=== PATIENT | female | born 1940 | race Caucasian/White ===

== ENCOUNTER → 2018-05-16 | Outpatient (CLI) | END | disposition home or self-care (01) ==

== ENCOUNTER → 2018-06-06 | Outpatient (CLI) | END | disposition home or self-care (01) ==

== ENCOUNTER 2018-06-10 17:41 | Inpatient (IN) | END 2018-06-14 16:55 | disposition home or self-care (01) | DRG 470 ==

== ENCOUNTER → 2018-06-20 | Outpatient (CLI) | END | disposition home or self-care (01) ==

== ENCOUNTER → 2018-07-18 | Outpatient (CLI) | END | disposition home or self-care (01) ==

== ENCOUNTER → 2018-12-12 | Outpatient (CLI) | payer BC ==
[~2018-12-12] MED LIST: FLUT1AER INHALATION; LEVO137T30 PO; LOSA25TA12 PO; ROSU20TA PO; UMEC62.5 IH
--- NOTE | 2018-12-12 12:01 | PN ---
Date/Time of Note Date/Time of Note DATE: 12/12/18 TIME: 11:59 Assessment/Plan VTE Prophylaxis Pharmacological prophylaxis: other Assessment/Plan Assessment/Plan The patient is a 78-year-old female with advanced osteoarthritis of her right knee. She is scheduled for right total knee replacement. Risks and benefits of surgical treatment have been discussed with the patient including but not li mited to bleeding, infection, scarring and stiffness, injury to nerves and vessels, DVT and PE, fracture dislocation, implant failure and need for further surgery. The patient understands and wishes to proceed. All questions and concerns were addressed Subjective 24 Hr Interval Summary Free Text/Dictation Lor is here for a preoperative visit related to right total knee replacement scheduled in about 10 days GALLO VEGA Dec 12, 2018 12:01
== END | disposition home or self-care (01) ==
LOC: HKI 11:41
PROVIDERS: ATTEND Orthopaedic Surgery
DX: Z01.818 Encounter for other preprocedural examination (principal); M17.11 Unilateral primary osteoarthritis, right knee
CPT/HCPCS: G0463

== ENCOUNTER 2018-12-22 06:32 | Inpatient (IN) | payer BC ==
[2018-12-14 12:48] VITALS: BMI 80.6
[2018-12-22] VITALS (34 sets, daily range): BP systolic 98–165; BP diastolic 42–71; PULSE 56–94; RESP 10–23; Ht 165.1 cm; Wt 100.6 kg
[~2018-12-22] VITALS: Ht 165.1 cm; Wt 100.6 kg
[2018-12-22] MEDS ORDERED: DEXAMETHASONE 4 MG/ML 1 ML INJ IV ONE (07:00)
[2018-12-22] MEDS ORDERED: TRANEXAMIC ACID 1GM/100ML(PMX) 100 ML IVPB ONE ×2 (07:00→08:00)
[2018-12-22] MEDS ORDERED: CEFAZOLIN 2 GM/50 ML (PMX) 50 ML IVPB ONE (07:00)
[2018-12-22] MEDS ORDERED: CEFAZOLIN 1 GM INJ ONE (07:00)
[2018-12-22] MEDS ORDERED: ACETAMINOPHEN 1000MG/100ML IV 100 ML IVPB SCH ×2 (07:42→07:52)
[2018-12-22] MEDS: LACTATED RINGER'S 1,000 ML IV SCH ×5 (07:45→20:45)
--- NOTE | 2018-12-22 08:16 | HPN ---
Date/Time of Note Date/Time of Note DATE: 12/22/18 TIME: 08:16 Interval H&P Admission Note Pt. seen H&P reviewed: No system changes GALLO VEGA Dec 22, 2018 08:16
[2018-12-22] MEDS ORDERED: POLYMYXIN B 500000 UNIT INJ ONE (08:40)
--- NOTE | 2018-12-22 08:40 | PREAC ---
Date/Time of Note Date/Time of Note DATE: 12/22/18 TIME: 08:38 Anesthesia Eval and Record Evaluation Time Pre-Procedure Interview DATE: 12/22/18 TIME: 08:38 Age 78 Sex female NPO: 8 hrs Preoperative diagnosis right knee primary OA Planned procedure Right knee arthroplasty Past Medical History Past Medical History: Includes Cardio: HTN Endo: Hypothyroid GI: Obesity Surgery & Anesthesia Issues No known issue Meds Anticoagulation: No Beta Pola within 24 hr: No Reason Beta Pola not given: Pt. not on B-Pola Reported Medications Fluticasone-Vilanterol (Breo Ellipta Inhaler) 100-25 Mcg/Actuation Aer.pow.ba, 1 PUFF INHALATION DAILY, #1 INHALER 06/07/18 Losartan Potassium* (Losartan Potassium*) 25 Mg Tablet, 25 MG PO DAILY, TAB 06/07/18 Rosuvastatin Calcium* (Crestor*) 20 Mg Tablet, 20 MG PO QHS, #30 TAB 06/07/18 Levothyroxine Sodium* (Synthroid*) 137 Mcg Tablet, 137 MCG PO BEFORE BREAKFAST, #30 TAB PT HAS OWN MED SHE HAS BEEN INSTRUCTED TO GIVE TO NURSE 06/07/18 Discontinued Reported Medications Umeclidinium Pequea (Incruse Ellipta) 62.5 Mcg Blst.w.dev, 62.5 MCG IH QHS 06/07/18 Current Medications Lactated Ringer's 1,000 ml @ 125 mls/hr Q8H IV Last administered on 12/22/18at 07:45; Admin Dose 125 MLS/HR; Start 12/22/18 at 07:00 Acetaminophen 100 ml @ 200 mls/hr ONCE IVPB Last administered on 12/22/18at 08:00; Admin Dose 200 MLS/HR; Start 12/22/18 at 07:52; Stop 12/22/18 at 10:00 Meds reviewed: Yes Allergies Coded Allergies: No Known Allergy (Unverified , 12/22/18) Allergies Reviewed: Yes Labs/Studies Labs Reviewed: Reviewed by anesthesiologist test: N/A Studies: ECG (sr), CXR (nl) Pre-procedure Exam Last vitals Vital Signs Date Temp Pulse Resp B/P (MAP) Pulse Ox O2 O2 Flow FiO2 Time Delivery Rate 12/22/18 97.8 64 18 149/67 96 Room Air 08:14 (94) Airway: Adequate mouth opening Mallampati: Mallampati I Teeth: Normal Lung: Normal Heart: Normal ASA Physical Status ASA physical status: 2 Emergency: None Planned Anesthetic General/MAC: LMA Neuraxial: Spinal Planned Pain Management Sub-arachniod narcotics, Parenteral pain med Pre-operative Attestations Prior to commencing anesthesia and surgery, the patient was re-evaluated, there was verification of: *The patient's identity *The results of appropriate recent lab work and preoperative vital signs *The above evaluation not changing prior to induction *Anesthetic plan, risk benefits, alternative and complications discussed with patient/family; questions answered; patient/family understands, accepts and wishes to proceed. YANN EDMOND MD Dec 22, 2018 08:39
[2018-12-22] MEDS ORDERED: BACITRACIN 50000 UNITS INJ ONE (08:41)
[2018-12-22] MEDS ORDERED: ONDANSETRON 4 MG INJ ONE ×2 (08:47→10:36)
[2018-12-22] MEDS ORDERED: MIDAZOLAM 1 MG/ML 2 ML INJ ONE (08:47)
[2018-12-22] MEDS ORDERED: FENTAnyl 50 MCG/ML VIAL ONE (08:47)
[2018-12-22] MEDS ORDERED: morphine SULFATE/PF (10 MG/10 ML) INJ ONE (08:47)
[2018-12-22] MEDS ORDERED: DEXAMETHASONE 4 MG/ML 5 ML INJ ONE (08:47)
[2018-12-22] MEDS ORDERED: METOCLOPRAMIDE 10 MG INJ ONE (08:47)
[2018-12-22] MEDS ORDERED: PROPOFOL 20 ML ONE (08:47)
[2018-12-22] MEDS ORDERED: TRANEXAMIC ACID 1GM/100ML(PMX) 100 ML ONE ×2 (10:26→13:28)
[2018-12-22] MEDS ORDERED: KETOROLAC 15 MG INJ IV PRN (10:30)
[2018-12-22] MEDS ORDERED: oxyCODONE 5 MG TAB PO PRN (10:30)
[2018-12-22] MEDS ORDERED: HYDROmorphONE 1 MG/ML SYG IV PRN (10:30)
[2018-12-22] MEDS ORDERED: NALOXONE (0.4 MG/ML) INJ IV PRN (10:30)
[2018-12-22] MEDS ORDERED: NACL 0.9% 3 ML SYG IV SCH (10:30)
[2018-12-22] MEDS ORDERED: MAGNESIUM HYDROXIDE 30ML CUP PO PRN (10:30)
[2018-12-22] MEDS ORDERED: HYDROmorphONE 2 MG/ML SYG ONE (10:30)
[2018-12-22] MEDS ORDERED: ROCURONIUM 50 MG INJ ONE (10:35)
[2018-12-22] MEDS ORDERED: SCOPOLAMINE 1.5 MG PATCH ONE (10:54)
[2018-12-22] MEDS ORDERED: HYDROmorphONE 1 MG/5 ML IV SYRINGE IV PRN ×3 (11:00)
[2018-12-22] MEDS ORDERED: MEPERIDINE 25 MG INJ IV PRN (11:00)
[2018-12-22] MEDS ORDERED: DIPHENHYDRAMINE 50 MG INJ IV PRN (11:00)
[2018-12-22] MEDS ORDERED: ONDANSETRON 4 MG INJ IV PRN (11:00)
[2018-12-22] MEDS ORDERED: LABETALOL HCL 20MG INJ IV PRN (11:00)
[2018-12-22] MEDS ORDERED: OXYCODONE/ACETAMINOPHEN (5/325) TAB PO PRN ×2 (11:00)
[2018-12-22] MEDS ORDERED: hydrALAzine 20 MG INJ IV PRN (11:00)
[2018-12-22] MEDS ORDERED: ROPIVACAINE 0.2% 20 ML VIAL ONE (11:26)
--- NOTE | 2018-12-22 11:56 | SIPON ---
Date/Time of Note Date/Time of Note DATE: 12/22/18 TIME: 11:55 Operative Report Preoperative Diagnosis Right knee osteoarthritis Postoperative Diagnosis Same Operation/Procedure Performed Right total knee replacement Surgeon see signature line shampoo assistant None Anesthesia: spinal Estimated blood loss: 150 - 200 ml's Transfusion Required none Specimen Bone Grafts/Implants Attune knee, size 6 femur, size 5 tibia, 35 patella and 8 mm of polyethylene Complications none GALLO VEGA Dec 22, 2018 11:56
--- NOTE | 2018-12-22 11:59 | OPR ---
Date/Time of Note Date/Time of Note DATE: 12/22/18 TIME: 11:56 Operative Report Procedure Date: Dec 22, 2018 Preoperative Diagnosis Right knee osteoarthritis Postoperative Diagnosis Same Operation/Procedure Performed Right total knee replacement Surgeon see signature line Needle Loom Weaver None Anesthesia Type: spinal Estimated Blood Loss: 150 - 200 ml's Transfusion none Specimen Bone Grafts/Implants Attune knee, size 6 femur, size 5 tibia, 8 mm polyethylene and 35 patella Complications none Pt Condition Post Procedure: stable Disposition: PACU Indications The patient is a 78-year-old female with advanced arthritis of her right knee. She has a flexion deformity and significant valgus with medial laxity Procedure Description The patient was placed supine on the operating room table. The right knee was prepped and draped in usual manner. An anterior incision was made. A mid vastus approach was made in the patella displaced laterally without everting it. The knee had advanced osteoarthritis with large osteophytes, loose bodies and complete loss of cartilage. Using intramedullary alignment, the distal femoral cut was made in 5 degrees of valgus. Anterior posterior and chamfer cuts were made. A notch was cut in the distal femur to accommodate the posterior stabilized femoral component. The PCL was sacrificed and remnants of the menisci were removed. The tibia was cut using external alignment and the patella cut using a freehand technique. Trials were inserted including a size 6 femur, size 5 tibia, 35 patella and 8 mm of polyethylene. This resulted in a stable knee from 0-120 degrees with good balance and tracking. X-rays confirm proper placement of the implants. After this the trials were removed and final components cemented in place. The knee was injected with pain cocktail. Size 6 narrow femur, size 5 tibia, 35 patella and 8 mm of polyethylene were placed mild medial laxity was noted. Final range of motion was 5-120 degrees. The knee was closed in layers using #1 strata fix for deep fascia, 2-0 Vicryl for subcutaneous tissue and 3-0 Monocryl for the skin. Patient was transferred to the recovery room in stable condition GALLO VEGA Dec 22, 2018 11:59
[2018-12-22] MEDS: GABAPENTIN 100 MG CAP PO SCH ×2 (13:00→20:49)
[2018-12-22] MEDS: CEFAZOLIN 2 GM/50 ML (PMX) 50 ML IVPB SCH ×2 (14:21→23:30)
--- NOTE | 2018-12-22 15:04 | PN ---
Date/Time of Note Date/Time of Note DATE: 12/22/18 TIME: 15:01 Assessment/Plan VTE Prophylaxis Risk score (from Ns)>0 risk: 5 SCD applied (from Ns): Yes Pharmacological prophylaxis: NA/contraindicated Pharm contraindication: surgical contra Lines/Catheters IV Catheter Type (from Nrsg): Peripheral IV Subjective 24 Hr Interval Summary Free Text/Dictation 78 yr old woman with hx hbp, lipids and hypothyroidism, now post op rt tkr. awake, alert. some knee pain and nausea. has a scopalamine patch, has zofran, pain meds. may continue home meds bp 141/65, sats ok. lungs clear, abd soft, knee wrapped, moves all four, no paresthesia. plan cont hoime meds, start p.t. Musculoskeletal: bone/joint pain Exam/Review of Systems Exam Vitals Vital Signs Date Temp Pulse Resp B/P (MAP) Pulse Ox O2 O2 Flow FiO2 Time Delivery Rate 12/22/18 97.7 94 18 125/58 85 14:49 (80) 12/22/18 Nasal 14:28 Cannula 12/22/18 3.0 13:03 Medications Medication Current Medications Lactated Ringer's 1,000 ml @ 125 mls/hr Q8H IV Last administered on 12/22/18at 07:45; Admin Dose 125 MLS/HR; Start 12/22/18 at 07:00 Lactated Ringer's 1,000 ml @ 80 mls/hr [id number] IV ; Start 12/22/18 at 10:08 IV Flush (NS 3 ml) 3 ml PER PROTOCOL IV ; Start 12/22/18 at 10:30 Oxycodone HCl (Roxicodone) 10 mg Q4H PRN PO .PAIN; Start 12/22/18 at 10:30 Oxycodone HCl (Roxicodone) 5 mg Q4H PRN PO .PAIN; Start 12/22/18 at 10:30 Hydromorphone HCl (Dilaudid) 1 mg Q3H PRN IV .BREAKTHROUGH PAIN; Start 12/22/18 at 10:30 Ketorolac Tromethamine (Toradol) 15 mg Q6H PRN IV .PAIN; Start 12/22/18 at 10:30 Ondansetron HCl (Zofran Inj) 4 mg Q4H PRN IV NAUSEA/VOMITING; Start 12/23/18 at 10:30 Cefazolin Sodium/ Dextrose 50 ml @ 100 mls/hr Q8H IVPB Last administered on 12/22/18at 14:21; Admin Dose 100 MLS/HR; Start 12/22/18 at 15:00; Stop 12/23/18 at 07:29 Celecoxib (Celebrex) 100 mg BID PO ; Start 12/23/18 at 09:00 Gabapentin (Neurontin) 100 mg TID PO ; Start 12/22/18 at 13:00 Pantoprazole (Protonix Tab) 40 mg DAILY@06 PO ; Start 12/24/18 at 06:00 Docusate Sodium (Colace) 200 mg BID PO ; Start 12/23/18 at 09:00; Stop 12/26/18 at 08:59 Magnesium Hydroxide (Milk Of Mag) 30 ml HS PRN PO .CONSTIPATION; Start 12/22/18 at 10:30 Naloxone HCl (Narcan) 0.2 mg Q2M PRN IV .RESP RATE; Start 12/22/18 at 10:30 Aspirin (Halfprin) 81 mg BID PO ; Start 12/23/18 at 09:00 Hydromorphone HCl (Dilaudid) 0.2 mg PACU PRN IV MILD PAIN 1-3; Start 12/22/18 at 11:00; Stop 12/22/18 at 16:00 Hydromorphone HCl (Dilaudid) 0.4 mg PACU PRN IV MOD PAIN 4-6 Last administered on 12/22/18at 14:00; Admin Dose 0.4 MG; Start 12/22/18 at 11:00; Stop 12/22/18 at 16:00 Hydromorphone HCl (Dilaudid) 0.6 mg PACU PRN IV SEVERE PAIN 7-10; Start 12/22/18 at 11:00; Stop 12/22/18 at 16:00 Oxycodone/ Acetaminophen (Percocet (5/ 325)) 1 tab PACU ORDER PRN PO .PAIN 1-5; Start 12/22/18 at 11:00; Stop 12/22/18 at 16:00 Oxycodone/ Acetaminophen (Percocet (5/ 325)) 2 tab PACU ORDER PRN PO .PAIN 6-10 Last administered on 12/22/18at 13:59; Admin Dose 2 TAB; Start 12/22/18 at 11:00; Stop 12/22/18 at 16:00 Ondansetron HCl (Zofran Inj) 4 mg PACU ORDER PRN IV NAUSEA/VOMITING; Start 12/22/18 at 11:00; Stop 12/22/18 at 16:00 Labetalol HCl (Labetalol) 5 mg PACU ORDER PRN IV HIGH BLOOD PRESSURE; Start 12/22/18 at 11:00; Stop 12/22/18 at 16:00 Hydralazine HCl (Apresoline) 5 mg PACU ORDER PRN IV HIGH BLOOD PRESSURE; Start 12/22/18 at 11:00; Stop 12/22/18 at 16:00 Meperidine HCl (Demerol) 25 mg PACU ORDER PRN IV .RIGORS; Start 12/22/18 at 11:00; Stop 12/22/18 at 16:00 Diphenhydramine HCl (Benadryl) 25 mg PACU ORDER PRN IV .PRURITUS; Start 12/22/18 at 11:00; Stop 12/22/18 at 16:00 MISTI ALFARO MD Dec 22, 2018 15:04
[2018-12-23] MEDS: oxyCODONE 5 MG TAB PO PRN ×5 (01:57→23:01)
[2018-12-23 07:57] VITALS: BP 100/47; PULSE 59; RESP 18
--- NOTE | 2018-12-23 08:52 | PN ---
Date/Time of Note Date/Time of Note DATE: 12/23/18 TIME: 08:50 Assessment/Plan VTE Prophylaxis Risk score (from Ns)>0 risk: 6 SCD applied (from Ns): Yes Pharmacological prophylaxis: NA/contraindicated Pharm contraindication: surgical contra (post tkr) Lines/Catheters IV Catheter Type (from [facility] Saline Lock Assessment/Plan Result Diagram: 12/23/18 0450 12/23/18 0450 Results 24hrs Laboratory Tests Test 12/23/18 04:50 12/23/18 07:04 White Blood Count 9.0 Red Blood Count 4.18 L Hemoglobin 12.4 Hematocrit 40.2 Mean Corpuscular Volume 96.2 Mean Corpuscular Hemoglobin 29.7 Mean Corpuscular Hemoglobin Concent 30.8 L Red Cell Distribution Width 13.4 Platelet Count 285 Mean Platelet Volume 9.1 Immature Granulocytes % 0.200 Neutrophils % 81.5 H Lymphocytes % 10.2 L Monocytes % 8.0 Eosinophils % 0.0 Basophils % 0.1 Nucleated Red Blood Cells % 0.0 Immature Granulocytes # 0.020 Neutrophils # 7.4 Lymphocytes # 0.9 Monocytes # 0.7 Eosinophils # 0.0 Basophils # 0.0 Nucleated Red Blood Cells # 0.0 Sodium Level 142 Potassium Level 4.9 Chloride Level 104 Carbon Dioxide Level 29 Anion Gap 9 Blood Urea Nitrogen 15 Creatinine 0.67 Est Glomerular Filtrat Rate mL/min Glucose Level 121 Calcium Level 8.7 Lab Scanned Report REFERENCE LAB Subjective 24 Hr Interval Summary Free Text/Dictation first post op day. getting up to br w assist, still sig discomfort. no cough or fever, vs ok am labs good alert, lungs clear, no edema. Musculoskeletal: bone/joint pain Exam/Review of Systems Exam Vitals Vital Signs Date Temp Pulse Resp B/P (MAP) Pulse Ox O2 O2 Flow FiO2 Time Delivery Rate 12/23/18 98.0 59 18 100/47 95 Room Air 07:57 (64) 12/22/18 2.0 20:00 Intake and Output 12/22/18 12/22/18 12/23/18 1515:00 23:00 07:00 IntakeIntake Total 1850 ml 1410 ml 910 ml OutputOutput Total 200 ml BalanceBalance 1650 ml 1410 ml 910 ml Results Results 24hrs Laboratory Tests Test 12/23/18 04:50 12/23/18 07:04 White Blood Count 9.0 Red Blood Count 4.18 L Hemoglobin 12.4 Hematocrit 40.2 Mean Corpuscular Volume 96.2 Mean Corpuscular Hemoglobin 29.7 Mean Corpuscular Hemoglobin Concent 30.8 L Red Cell Distribution Width 13.4 Platelet Count 285 Mean Platelet Volume 9.1 Immature Granulocytes % 0.200 Neutrophils % 81.5 H Lymphocytes % 10.2 L Monocytes % 8.0 Eosinophils % 0.0 Basophils % 0.1 Nucleated Red Blood Cells % 0.0 Immature Granulocytes # 0.020 Neutrophils # 7.4 Lymphocytes # 0.9 Monocytes # 0.7 Eosinophils # 0.0 Basophils # 0.0 Nucleated Red Blood Cells # 0.0 Sodium Level 142 Potassium Level 4.9 Chloride Level 104 Carbon Dioxide Level 29 Anion Gap 9 Blood Urea Nitrogen 15 Creatinine 0.67 Est Glomerular Filtrat Rate mL/min Glucose Level 121 Calcium Level 8.7 Lab Scanned Report REFERENCE LAB Medications Medication Current Medications IV Flush (NS 3 ml) 3 ml PER PROTOCOL IV ; Start 12/22/18 at 10:30 Oxycodone HCl (Roxicodone) 10 mg Q4H PRN PO .PAIN Last administered on 12/23/18at 06:25; Admin Dose 10 MG; Start 12/22/18 at 10:30 Oxycodone HCl (Roxicodone) 5 mg Q4H PRN PO .PAIN; Start 12/22/18 at 10:30 Hydromorphone HCl (Dilaudid) 1 mg Q3H PRN IV .BREAKTHROUGH PAIN; Start 12/22/18 at 10:30 Ketorolac Tromethamine (Toradol) 15 mg Q6H PRN IV .PAIN; Start 12/22/18 at 10:30 Ondansetron HCl (Zofran Inj) 4 mg Q4H PRN IV NAUSEA/VOMITING; Start 12/23/18 at 10:30 Celecoxib (Celebrex) 100 mg BID PO ; Start 12/23/18 at 09:00 Gabapentin (Neurontin) 100 mg TID PO Last administered on 12/22/18at 20:49; Admin Dose 100 MG; Start 12/22/18 at 13:00 Pantoprazole (Protonix Tab) 40 mg DAILY@06 PO ; Start 12/24/18 at 06:00 Docusate Sodium (Colace) 200 mg BID PO ; Start 12/23/18 at 09:00; Stop 12/26/18 at 08:59 Magnesium Hydroxide (Milk Of Mag) 30 ml HS PRN PO .CONSTIPATION; Start 12/22/18 at 10:30 Naloxone HCl (Narcan) 0.2 mg Q2M PRN IV .RESP RATE; Start 12/22/18 at 10:30 Aspirin (Halfprin) 81 mg BID PO ; Start 12/23/18 at 09:00 MISTI ALFARO MD Dec 23, 2018 08:52
[2018-12-23] MEDS: CELECOXIB 100 MG CAP PO SCH ×2 (09:00→21:21)
[2018-12-23] MEDS: ASPIRIN (EC) 81 MG TAB PO SCH ×2 (09:00→21:21)
[2018-12-23] MEDS: GABAPENTIN 100 MG CAP PO SCH ×3 (09:00→21:21)
[2018-12-23] MEDS: DOCUSATE SODIUM 100 MG CAP PO SCH ×2 (09:01→21:21)
[2018-12-23] MEDS: CEFAZOLIN 2 GM/50 ML (PMX) 50 ML IVPB SCH (09:01)
[2018-12-23] MEDS ORDERED: ONDANSETRON 4 MG INJ IV PRN (10:30)
--- NOTE | 2018-12-23 12:20 | PAC ---
Date/Time of Note Date/Time of Note DATE: 12/23/18 TIME: 12:20 Post-Anesthesia Notes Post-Anesthesia Note Last documented vital signs Vital Signs Date Temp Pulse Resp B/P (MAP) Pulse Ox O2 O2 Flow FiO2 Time Delivery Rate 12/23/18 98.0 59 18 100/47 95 Room Air 07:57 (64) 12/22/18 2.0 20:00 Activity: WNL Respiratory function: WNL Cardiovascular function: WNL Mental status: Baseline Pain reasonably controlled: Yes Hydration appropriate: Yes Nausea/Vomiting absent: No YANN EDMOND MD Dec 23, 2018 12:20
--- NOTE | 2018-12-23 12:22 | OPPN ---
Date/Time of Note Date/Time of Note DATE: 12/23/18 TIME: 12:20 Anesthesia Follow up Anesthesia Follow up Last documented vital signs Vital Signs Date Temp Pulse Resp B/P (MAP) Pulse Ox O2 O2 Flow FiO2 Time Delivery Rate 12/23/18 98.0 59 18 100/47 95 Room Air 07:57 (64) 12/22/18 2.0 20:00 Respiratory function: WNL Cardiovascular function: WNL Comments a 78N YEAR FRMALE S/P GA, SPINAL DURAMORPH, POD #1 IS DOING WELL. PAIN IS CONTROLLED, NO N?V, ITCHING, HEADACHE, NEURAL DEFICIT. YANN EDMOND MD Dec 23, 2018 12:22
[2018-12-23] MEDS: LOSARTAN 25 MG TAB PO SCH (16:45)
[2018-12-23] MEDS: SYNTHROID 137MCG TABLET PO SCH (16:45)
[2018-12-23] MEDS: FLUTICASONE/VILANTEROL 100-25 INH SCH (16:45)
[2018-12-23 16:47] VITALS: BP 114/55; PULSE 69; RESP 16
[2018-12-23 20:30] VITALS: BP 110/55; PULSE 73; RESP 18
[2018-12-23] MEDS ORDERED: NON-FORMULARY/PATIENT OWN MED (Rosuvastatin Calcium* (Crestor*) 20 MG) PO SCH (21:00)
[2018-12-23] MEDS: ATORVASTATIN 80 MG TAB PO SCH (21:21)
[2018-12-24 02:30] VITALS: BP 120/55; PULSE 79; RESP 19
[2018-12-24] MEDS: oxyCODONE 5 MG TAB PO PRN (04:16)
[2018-12-24] MEDS: SYNTHROID 137MCG TABLET PO SCH (06:09)
[2018-12-24] MEDS: PANTOPRAZOLE (EC) 40 MG TAB PO SCH (06:09)
[2018-12-24] MEDS ORDERED: LEVOTHYROXINE 137 MCG TAB PO SCH (07:00)
[2018-12-24 08:00] VITALS: BP 130/60; PULSE 89; RESP 18
[2018-12-24] MEDS: ASPIRIN (EC) 81 MG TAB PO SCH ×2 (10:04→21:29)
[2018-12-24] MEDS: DOCUSATE SODIUM 100 MG CAP PO SCH ×2 (10:04→21:29)
[2018-12-24] MEDS: GABAPENTIN 100 MG CAP PO SCH ×3 (10:04→21:29)
[2018-12-24] MEDS: CELECOXIB 100 MG CAP PO SCH ×2 (10:04→21:29)
[2018-12-24] MEDS: LOSARTAN 25 MG TAB PO SCH (10:06)
[2018-12-24] MEDS: FLUTICASONE/VILANTEROL 100-25 INH SCH (10:10)
--- NOTE | 2018-12-24 13:19 | PDOCDIS ---
Discharge Instructions CONDITION [id number] Patient Condition: [id number] Good HOME CARE INSTRUCTIONS: [id number] Diet Instructions: [id number] Regular ACTIVITY: [id number] Activity Restrictions: [id number] Rest between Activity Do not Drive Keep Limb Elevated [id number] Bathing Restrictions: Lafvs9e Shower GALLO VEGA Dec 24, 2018 13:19
--- NOTE | 2018-12-24 13:19 | PN ---
Date/Time of Note Date/Time of Note DATE: 12/24/18 TIME: 13:17 Assessment/Plan Lines/Catheters IV Catheter Type (from Nrsg): Saline Lock Assessment/Plan Assessment/Plan Patient is progressing well after knee replacement. However, she has significant nausea today. She has been unable to participate in physical therapy today. It is better for her to spend another 24-48 hours in the hospital until the nausea has resolved. Her pain should be well controlled on oral pain medication. She also needs a couple more sessions of physical therapy before she can leave. Once she is cleared by physical therapy, patient may be discharged home with home health care Subjective 24 Hr Interval Summary Patient is progressing well after total knee replacement. She does report significant nausea today due to excessive pain medication. She was not able to do her physical therapy this morning. No fever or chills Exam/Review of Systems Vital Signs Vitals Vital Signs Date Temp Pulse Resp B/P (MAP) Pulse Ox O2 O2 Flow FiO2 Time Delivery Rate 12/24/18 97.8 89 18 130/60 92 08:00 (83) 12/23/18 Nasal 2.0 16:47 Cannula Intake and Output 12/23/18 12/23/18 12/24/18 1414:59 22:59 06:59 IntakeIntake Total 50 ml 1040 ml OutputOutput Total 350 ml BalanceBalance 50 ml 690 ml Exam Free Text/Dictation Right knee dressing is intact. Range of motion is 10-90 degrees. There is no neurovascular deficit. Results Result Diagram: 12/24/18 0446 12/24/18 0446 GALLO VEGA Dec 24, 2018 13:19
[2018-12-24 14:00] VITALS: BP_SYST 132; BP_DIAS 35; BP_DIAS 65; PULSE 80; RESP 18
--- NOTE | 2018-12-24 16:50 | PN ---
Date/Time of Note Date/Time of Note DATE: 12/24/18 PATIENT SEEN @ 12:45 TIME OF NOTE: 16:37 Assessment/Plan VTE Prophylaxis Risk score (from [facility])>0 risk: 12 SCD applied (from [facility]): Yes Pharmacological prophylaxis: NA/contraindicated Pharm contraindication: surgical contra (TKR) Lines/Catheters IV [facility] Saline Lock Assessment/Plan Problems: (1) Osteoarthritis Status: Chronic Comment: Patient is status post right total knee replacement POD #2. Had the left knee replaced last year Qualifiers: Laterality: bilateral (2) Status post total right knee replacement Status: Acute Comment: POD # 2. Unable to wok th physical therapy today due to severe nausea. Still with lower extremity discomfort. (3) Hypertension, essential Status: Chronic Comment: Decent control (4) Acquired hypothyroidism Status: Chronic Comment: On replacement therapy. Dose has been adjusted to correct for the suppressed TSH suggestive of being overmedicated. (5) Mild persistent asthma Status: Chronic Qualifiers: Asthma complication type: uncomplicated Qualified Codes: J45.30 - Mild persistent asthma, uncomplicated Result Diagram: 12/24/18 0446 12/24/18 0446 Results 24hrs Laboratory Tests Test 12/24/18 04:46 White Blood Count 6.2 # Red Blood Count 3.78 L Hemoglobin 11.1 L Hematocrit 36.1 L Mean Corpuscular Volume 95.5 Mean Corpuscular Hemoglobin 29.4 Mean Corpuscular Hemoglobin Concent 30.7 L Red Cell Distribution Width 13.7 Platelet Count 233 Mean Platelet Volume 9.4 Immature Granulocytes % 0.300 Neutrophils % 73.4 Lymphocytes % 16.5 Monocytes % 8.9 Eosinophils % 0.6 Basophils % 0.3 Nucleated Red Blood Cells % 0.0 Immature Granulocytes # 0.020 Neutrophils # 4.6 Lymphocytes # 1.0 Monocytes # 0.6 Eosinophils # 0.0 Basophils # 0.0 Nucleated Red Blood Cells # 0.0 Sodium Level 136 Potassium Level 4.0 Chloride Level 99 Carbon Dioxide Level 32 H Anion Gap 5 Blood Urea Nitrogen 17 Creatinine 0.64 Est Glomerular Filtrat Rate mL/min Glucose Level 128 Calcium Level 8.3 L Subjective 24 Hr Interval Summary Free Text/Dictation Patient complains of extreme nausea. Unable to get up or move without vomiting. Exam/Review of Systems Exam Vitals Vital Signs Date Temp Pulse Resp B/P (MAP) Pulse Ox O2 O2 Flow FiO2 Time Delivery Rate 12/24/18 97.9 80 18 132/35 99 14:00 (67) 12/23/18 Nasal 2.0 16:47 Cannula Intake and Output 12/23/18 12/23/18 12/24/18 1515:00 23:00 07:00 IntakeIntake Total 50 ml 1040 ml OutputOutput Total 350 ml BalanceBalance 50 ml 690 ml Constitutional: alert, oriented, obese Head: normocephalic Neck: supple Respiratory: clear to auscultation Cardiovascular: regular rate and rhythm Gastrointestinal: soft Extremities: normal pulses Results Results 24hrs Laboratory Tests Test 12/24/18 04:46 White Blood Count 6.2 # Red Blood Count 3.78 L Hemoglobin 11.1 L Hematocrit 36.1 L Mean Corpuscular Volume 95.5 Mean Corpuscular Hemoglobin 29.4 Mean Corpuscular Hemoglobin Concent 30.7 L Red Cell Distribution Width 13.7 Platelet Count 233 Mean Platelet Volume 9.4 Immature Granulocytes % 0.300 Neutrophils % 73.4 Lymphocytes % 16.5 Monocytes % 8.9 Eosinophils % 0.6 Basophils % 0.3 Nucleated Red Blood Cells % 0.0 Immature Granulocytes # 0.020 Neutrophils # 4.6 Lymphocytes # 1.0 Monocytes # 0.6 Eosinophils # 0.0 Basophils # 0.0 Nucleated Red Blood Cells # 0.0 Sodium Level 136 Potassium Level 4.0 Chloride Level 99 Carbon Dioxide Level 32 H Anion Gap 5 Blood Urea Nitrogen 17 Creatinine 0.64 Est Glomerular Filtrat Rate mL/min Glucose Level 128 Calcium Level 8.3 L Medications Medication Current Medications IV Flush (NS 3 ml) 3 ml PER PROTOCOL IV ; Start 12/22/18 at 10:30 Oxycodone HCl (Roxicodone) 10 mg Q4H PRN PO .PAIN Last administered on 12/24/18at 04:16; Admin Dose 10 MG; Start 12/22/18 at 10:30 Oxycodone HCl (Roxicodone) 5 mg Q4H PRN PO .PAIN Last administered on 12/24/18at 10:03; Admin Dose 5 MG; Start 12/22/18 at 10:30 Hydromorphone HCl (Dilaudid) 1 mg Q3H PRN IV .BREAKTHROUGH PAIN Last administered on 12/24/18 15:44; Admin Dose 1 MG; Start 12/22/18 at 10:30 Ketorolac Tromethamine (Toradol) 15 mg Q6H PRN IV .PAIN; Start 12/22/18 at 10:30 Ondansetron HCl (Zofran Inj) 4 mg Q4H PRN IV NAUSEA/VOMITING Last administered on 12/24/18 13:56; Admin Dose 4 MG; Start 12/23/18 at 10:30 Celecoxib (Celebrex) 100 mg BID PO Last administered on 12/24/18 10:04; Admin Dose 100 MG; Start 12/23/18 at 09:00 Gabapentin (Neurontin) 100 mg TID PO Last administered on 12/24/18 14:30; Admin Dose 100 MG; Start 12/22/18 at 13:00 Pantoprazole (Protonix Tab) 40 mg DAILY@06 PO Last administered on 12/24/18 06:09; Admin Dose 40 MG; Start 12/24/18 at 06:00 Docusate Sodium (Colace) 200 mg BID PO Last administered on 12/24/18 10:04; Admin Dose 200 MG; Start 12/23/18 at 09:00; Stop 12/26/18 at 08:59 Magnesium Hydroxide (Milk Of Mag) 30 ml HS PRN PO .CONSTIPATION; Start 12/22/18 at 10:30 Naloxone HCl (Narcan) 0.2 mg Q2M PRN IV .RESP RATE; Start 12/22/18 at 10:30 Aspirin (Halfprin) 81 mg BID PO Last administered on 12/24/18 10:04; Admin Dose 81 MG; Start 12/23/18 at 09:00 Fluticasone/ Vilanterol (Breo Ellipta 100-25 Mcg Inh) 1 inh DAILY INH Last administered on 12/24/18 10:10; Admin Dose 1 INH; Start 12/23/18 at 14:30 Losartan Potassium (Cozaar) 25 mg DAILY PO Last administered on 12/24/18 10:06; Admin Dose 25 MG; Start 12/23/18 at 13:30 Atorvastatin Calcium (Lipitor) 80 mg DAILY@21 PO Last administered on 12/23/18 21:21; Admin Dose 80 MG; Start 12/23/18 at 21:00 Patient Own Medication 1 ea DAILY@0600 PO Last administered on 12/24/18at 06:09; Admin Dose 1 EA; Start 12/23/18 at 15:00 MAGGIE ADLER MD Dec 24, 2018 16:47
[2018-12-24 20:44] VITALS: BP 138/62; PULSE 81; RESP 20
[2018-12-24] MEDS: ATORVASTATIN 80 MG TAB PO SCH (21:28)
[2018-12-25 02:25] VITALS: BP 95/45; PULSE 77; RESP 20
[2018-12-25] MEDS: SYNTHROID 137MCG TABLET PO SCH (05:44)
[2018-12-25] MEDS: PANTOPRAZOLE (EC) 40 MG TAB PO SCH (05:44)
[2018-12-25 08:04] VITALS: BP 115/57; PULSE 76; RESP 18
[2018-12-25] MEDS: DOCUSATE SODIUM 100 MG CAP PO SCH (09:00)
[2018-12-25] MEDS: LOSARTAN 25 MG TAB PO SCH (09:00)
[2018-12-25] MEDS: FLUTICASONE/VILANTEROL 100-25 INH SCH (09:26)
[2018-12-25] MEDS: CELECOXIB 100 MG CAP PO SCH (09:26)
[2018-12-25] MEDS: GABAPENTIN 100 MG CAP PO SCH ×2 (09:26→13:22)
[2018-12-25] MEDS: ASPIRIN (EC) 81 MG TAB PO SCH (09:26)
--- NOTE | 2018-12-25 11:41 | PN ---
Date/Time of Note Date/Time of Note DATE: 12/25/18 TIME: 11:39 Assessment/Plan VTE [place] [facility] [place]: 13 [place] [facility] [place] Pharmacological prophylaxis: NA/contraindicated Pharm contraindication: low risk/ambulating Lines/Catheters IV Catheter Type (from [facility] Saline Lock Assessment/Plan Problems: (1) Status post total right knee replacement Status: Acute Comment: Clinically stable (2) Acquired hypothyroidism Status: Chronic Comment: No issues at this time (3) Hypertension, essential Status: Chronic Comment: Good BP control Assessment/Plan Clinically stable to go home. Result Diagram: 12/25/1842712/25/18427 Results 24hrs Laboratory Tests Test 12/25/18 04:28 White Blood Count 7.2 Red Blood Count 3.45 L Hemoglobin 10.3 L Hematocrit 33.3 L Mean Corpuscular Volume 96.5 Mean Corpuscular Hemoglobin 29.9 Mean Corpuscular Hemoglobin Concent 30.9 L Red Cell Distribution Width 13.6 Platelet Count 223 Mean Platelet Volume 9.5 Immature Granulocytes % 0.700 H Neutrophils % 70.9 Lymphocytes % 14.5 L Monocytes % 12.6 H Eosinophils % 0.6 Basophils % 0.7 Nucleated Red Blood Cells % 0.0 Immature Granulocytes # 0.050 H Neutrophils # 5.1 Lymphocytes # 1.0 Monocytes # 0.9 Eosinophils # 0.0 Basophils # 0.1 Nucleated Red Blood Cells # 0.0 Sodium Level 138 Potassium Level 4.8 Chloride Level 98 Carbon Dioxide Level 34 H Anion Gap 6 Blood Urea Nitrogen 21 H Creatinine 0.82 Est Glomerular Filtrat Rate mL/min Glucose Level 122 Calcium Level 8.2 L Subjective 24 Hr Interval Summary Free Text/Dictation No new events overnight. Nausea improved Exam/Review of Systems Exam Vitals Vital Signs Date Temp Pulse Resp B/P (MAP) Pulse Ox O2 O2 Flow FiO2 Time Delivery Rate 12/25/18 97.5 76 18 115/57 88 08:04 (76) 12/23/18 Nasal 2.0 16:47 Cannula Intake and Output 12/24/18 12/24/18 12/25/18 1515:00 23:00 07:00 IntakeIntake Total 400 ml 400 ml 300 ml BalanceBalance 400 ml 400 ml 300 ml Constitutional: alert, oriented Neck: supple Respiratory: clear to auscultation Cardiovascular: regular rate and rhythm Gastrointestinal: soft Extremities: normal pulses Results Results 24hrs Laboratory Tests Test 12/25/18 04:28 White Blood Count 7.2 Red Blood Count 3.45 L Hemoglobin 10.3 L Hematocrit 33.3 L Mean Corpuscular Volume 96.5 Mean Corpuscular Hemoglobin 29.9 Mean Corpuscular Hemoglobin Concent 30.9 L Red Cell Distribution Width 13.6 Platelet Count 223 Mean Platelet Volume 9.5 Immature Granulocytes % 0.700 H Neutrophils % 70.9 Lymphocytes % 14.5 L Monocytes % 12.6 H Eosinophils % 0.6 Basophils % 0.7 Nucleated Red Blood Cells % 0.0 Immature Granulocytes # 0.050 H Neutrophils # 5.1 Lymphocytes # 1.0 Monocytes # 0.9 Eosinophils # 0.0 Basophils # 0.1 Nucleated Red Blood Cells # 0.0 Sodium Level 138 Potassium Level 4.8 Chloride Level 98 Carbon Dioxide Level 34 H Anion Gap 6 Blood Urea Nitrogen 21 H Creatinine 0.82 Est Glomerular Filtrat Rate mL/min Glucose Level 122 Calcium Level 8.2 L Medications Medication Current Medications IV Flush (NS 3 ml) 3 ml PER PROTOCOL IV ; Start 12/22/18 at 10:30 Oxycodone HCl (Roxicodone) 10 mg Q4H PRN PO .PAIN Last administered on 12/24/18 04:16; Admin Dose 10 MG; Start 12/22/18 at 10:30 Oxycodone HCl (Roxicodone) 5 mg Q4H PRN PO .PAIN Last administered on 12/24/18 10:03; Admin Dose 5 MG; Start 12/22/18 at 10:30 Hydromorphone HCl (Dilaudid) 1 mg Q3H PRN IV .BREAKTHROUGH PAIN Last administer ed on 12/24/18 15:44; Admin Dose 1 MG; Start 12/22/18 at 10:30 Ketorolac Tromethamine (Toradol) 15 mg Q6H PRN IV .PAIN; Start 12/22/18 at 10:30 Ondansetron HCl (Zofran Inj) 4 mg Q4H PRN IV NAUSEA/VOMITING Last administered on 12/24/18 13:56; Admin Dose 4 MG; Start 12/23/18 at 10:30 Celecoxib (Celebrex) 100 mg BID PO Last administered on 12/25/18 09:26; Admin Dose 100 MG; Start 12/23/18 at 09:00 Gabapentin (Neurontin) 100 mg TID PO Last administered on 12/25/18 09:26; Admin Dose 100 MG; Start 12/22/18 at 13:00 Pantoprazole (Protonix Tab) 40 mg DAILY@06 PO Last administered on 12/25/18 05:44; Admin Dose 40 MG; Start 12/24/18 at 06:00 Docusate Sodium (Colace) 200 mg BID PO Last administered on 12/24/18 21:29; Admin Dose 200 MG; Start 12/23/18 at 09:00; Stop 12/26/18 at 08:59 Magnesium Hydroxide (Milk Of Mag) 30 ml HS PRN PO .CONSTIPATION; Start 12/22/18 at 10:30 Naloxone HCl (Narcan) 0.2 mg Q2M PRN IV .RESP RATE; Start 12/22/18 at 10:30 Aspirin (Halfprin) 81 mg BID PO Last administered on 12/25/18 09:26; Admin Dose 81 MG; Start 12/23/18 at 09:00 Fluticasone/ Vilanterol (Breo Ellipta 100-25 Mcg Inh) 1 inh DAILY INH Last administered on 12/25/18 09:26; Admin Dose 1 INH; Start 12/23/18 at 14:30 Losartan Potassium (Cozaar) 25 mg DAILY PO Last administered on 12/24/18 10:06; Admin Dose 25 MG; Start 12/23/18 at 13:30 Atorvastatin Calcium (Lipitor) 80 mg DAILY@21 PO Last administered on 12/24/18 21:28; Admin Dose 80 MG; Start 12/23/18 at 21:00 Patient Own Medication 1 ea DAILY@0600 PO Last administered on 12/25/18 05:44; Admin Dose 1 EA; Start 12/23/18 at 15:00 MAGGIE ADLER MD Dec 25, 2018 11:41
[2018-12-25 14:32] VITALS: BP 108/58; PULSE 85; RESP 18
== END 2018-12-25 17:10 | disposition home health service (06) | DRG 470 ==
LOC: REC 06:32 → MS1 14:15
PROVIDERS: ADMIT Orthopaedic Surgery; ATTEND Orthopaedic Surgery
PROC: 0SRC0J9 Replacement of Right Knee Joint with Synthetic Substitute, Cemented, Open Approach (ICD-10-PCS; principal; 2018-12-22 09:00)
DX: M17.11 Unilateral primary osteoarthritis, right knee (principal); I10 Essential (primary) hypertension; E03.9 Hypothyroidism, unspecified
CPT/HCPCS: 73560; 80048; 85025; 87081; 88304; 88311; 97110; 97116; 97161; 97530; C1713; C1776; J0131; J0171; J0690; J0735; J1100; J1170; J1885; J2250; J2274; J2405; J2765; J2795; J3010; J7120